=== PATIENT | female | born 2000 | race Caucasian/White ===

== ENCOUNTER 2025-03-24 23:13 | Emergency (ER) | payer OTHER, SELFPAY ==
[2025-03-24 23:18] VITALS: BP 154/90
[2025-03-25] MEDS: NSS 1000 IV (00:27)
[2025-03-25] MEDS: PEPCID 20 MG IV (00:27)
[2025-03-25] MEDS: ZOFRAN 4 MG IV (00:27)
[2025-03-25 00:33] VITALS: BMI 27.7
[2025-03-25 00:57] LABS: HCG, Serum Qualitative Screen Negative
[2025-03-25 00:59] LABS: Hematocrit 42.2 % (37.0-47.0); Hemoglobin 14.6 g/dL (12.0-16.0); Mean Corp Hgb Conc. 34.6 g/dL (33.0-37.0); Mean Corpuscular Volume 80.2 fL (81.0-99.0); Nucleated Red Blood Cells % 0 %; Platelet Count 277 10^3/uL (130-400); Red Cell Dist. Width 13.2 % (11.5-14.5)
[2025-03-25 01:07] LABS: ALT (SGPT) 19 U/L (0-35); AST (SGOT) 27 U/L (14-36); Albumin 4.0 g/dl (3.5-5.0); Alkaline Phosphatase 47 U/L (38-126); Blood Urea Nitrogen 16 mg/dl (7-17); Calcium 9.3 mg/dl (8.4-10.2); Carbon Dioxide 19 mmol/L (22-30); Chloride 108 mmol/L (98-107); Estimated Creatinine Clearance > 125 ml/min; Glucose 120 mg/dl (70-99); Lipase 169 U/L (23-300); Potassium 4.0 mmol/L (3.5-5.1); Sodium 134 mmol/L (135-145); Total Protein 6.7 g/dl (6.3-8.2); eGFR > 60.00
--- NOTE | 2025-03-25 01:12 | ED.GENMED ---
History of Present Illness
General
Chief Complaint: Abdominal Symptoms
Source: patient
Exam Limitations: none
Time Seen by Provider: 03/24/25 23:32
Nursing documentation reviewed up to this point in time: agreed with
History of Present Illness
History of Present Illness:
24-year-old female presenting to the emergency department today with concerns of nausea vomit diarrhea starting yesterday after eating sushi. Has had intermittent crampy abdominal pain but no ongoing persisting pain. Denies any fevers denies any
blood in the stool or vomitus.
Review of Systems
Review of Systems
Allergies reviewed?: Yes
All Other Systems: ROS reviewed and negative except as documented in HPI and ROS
Phy Exam
Physical Exam
Physical Exam:
GENERAL: Alert , in no apparent distress
EYE: pupils equal and reactive
NECK: Supple, no significant adenopathy.
ENT: o/p clr, mmm.
CARDIAC: Regular rate and rhythm .
LUNGS: Clear breath sounds bilaterally, no acute respiratory distress, no wheezes/rales/rhonchi
ABDOMEN: Soft, without focal tenderness, no r/g, no cvat
NEUROLOGICAL: Alert and oriented, no focal neuro deficits
SKIN: Warm and dry, skin intact.
MUSCULOSKELETAL: No edema, well perfused.
PSYCH: Normal and appropriate interaction.
Course
Orders/Labs/Results
Orders:
Orders
03/25/25 00:09
0.9% Sodium Chloride 1000 ml [Nss] 1,000 ml IV BOLUS
Famotidine [Pepcid] 20 mg IV NOW STA
Ondansetron Injectable [Zofran] 4 mg IV NOW STA
03/25/25 00:10
Test Result ONCE
03/25/25 00:26
Complete Blood Count/With Diff Urgent
Comprehensive Metabolic Panel Urgent
HCG, Serum Qualitative Screen Urgent
Lipase Urgent
03/25/25 01:36
Urinalysis Reflex To Culture Urgent
Date Specimen was Collected: 03/25/25
Time Specimen was Collected: 01:34
Urine Microscopic Reflex Cult Urgent
Urine Culture Urgent
BRANNON Source: U
Specimen Description:
Date Specimen was Collected: 03/25/25
Time Specimen was Collected: :34
Abnormal Lab Results
03/25/25 03/25/25
00:26 01:36
WBC 11.4 H 10^3/uL
(4.8-10.8)
MCV 80.2 L fL
(81.0-99.0)
Abs Immat Gran (auto) 0.1 H 10^3/uL
(0-0.05)
Absolute Neuts (auto) 7.5 H 10^3/uL
(1.4-6.5)
Absolute Monos (auto) 0.8 H 10^3/uL
(0.1-0.6)
Sodium 134 L mmol/L
(135-145)
Chloride 108 H mmol/L
(98-107)
Carbon Dioxide 19 L mmol/L
(22-30)
Glucose 120 H mg/dl
(70-99)
Ur Occult Blood Reflex 1+ A
(Negative)
Leukocyte Esterase Rfl 1+ A
(Negative)
Urine Bacteria (Reflex) Few A
(Negative)
Urine Albumin (Reflex) 2+ A
(Neg - Trace)
03/25/25 00:26
03/25/25 00:26
Vital Signs
Initial and Last Documented VS:
Initial Vital Signs
Temp Pulse Resp BP Pulse Ox
99.5 F 98 16 154/90 97
03/24/25 23:18 03/24/25 23:18 03/24/25 23:18 03/24/25 23:18 03/24/25 23:18
Last Documented Vital Signs
Temp Pulse Resp BP Pulse Ox
98.5 F 56 18 132/85 97
03/25/25 02:13 03/25/25 02:13 03/25/25 02:13 03/25/25 02:13 03/25/25 02:13
MDM/Problems Addressed
MDM/Problems Addressed:
24-year-old female presenting to the emergency department today with concerns of nausea vomiting diarrhea over the past 24 hours or so. No abdominal pain to palpation. Blood pressure slightly elevated otherwise vital signs are normal. Very slight
white count likely related to patient's ongoing vomiting. Otherwise labs without emergent findings. Was given Zofran and fluids to help with symptoms. Patient reassessed with significant improvement. Stable for discharge at this time with likely
stomach bug. Return precautions given.
*Pulse Oximetry
SaO2: 97
Oxygen Mode of Delivery: Room air
Patient hypoxic: no (97)
*Critical Care Note
Total Time (30-74mins, 75-104mins- exclusive of procedures): Not Applicable
ED Attending Note
-
Portions of this chart may have been created with voice recognition software.� Occasional wrong word or��sound alike� substitutions may have occurred due to the inherent limitations of voice recognition software.
Discharge Plan
Departure
Patient Disposition: Home (Routine Discharge)
Date of Disposition: 03/25/25
Time of Disposition: 02:12
Patient with high blood pressure during this ER visit?: No
Condition: Good
Covid-19: Not Applicable
Discharge Problem:
Nausea, vomiting and diarrhea
Instructions: Diarrhea in teens and adults, Nausea and Vomiting, Adult (DC)
Prescriptions:
New
ondansetron 4 mg tablet,disintegrating
4 mg PO Q6H PRN (Reason: nausea and vomiting) Qty: 7 0RF
Referrals:
July Whatley, DO [Family Provider, Internal Medicine]
Activity Restrictions/Additional Instructions:
You came to the emergency department today with concerns of nausea vomiting diarrhea. This is likely a stomach bug. Please try to consume electrolyte solution over the next few days as symptoms will hopefully be improving. You can also take
Zofran as needed every 6 hours. Return for any worsening, new or concerning symptoms.
Interventions
Interventions:
*Risk Screen - Suicide Last Done: 03/24/25 23:18
*Nursing Disposition Last Done: 03/25/25 02:28
[facility] Assessment Last Done: 03/25/25 00:34
Discharge Date and Time
Discharge Date/Time: 03/25/25 02:29
Print Language: NEPALI
[2025-03-25 02:03] LABS: Urine Character Clear (Clear)
[2025-03-25 02:13] VITALS: BP 132/85
[2025-03-25 02:31] LABS: Urine Red Blood Cell None Seen /HPF (0-2); Urine White Cell 0-2 /HPF (0-5)
== END 2025-03-25 02:29 | disposition home or self-care (01) ==
LOC: EMR 23:13
PROVIDERS: Physician Assistant; EMERGENCY PHYSICIAN Student in an Organized Health Care Education/Training Program; FAMILY PHYSICIAN Internal Medicine
DX: R11.2 Nausea with vomiting, unspecified (principal); R19.7 Diarrhea, unspecified; R10.9 Unspecified abdominal pain
CPT/HCPCS: 96374; 96375; 96361; 99284; 80053; 81003; 81015; 83690; 84703; 85025; 87086